=== PATIENT | male | born 1980 | race Caucasian/White ===

== ENCOUNTER 2023-09-30 09:50 | Emergency (ER) | payer OTHER ==
[~2023-09-30] VITALS: Ht 180.3 cm; Wt 81.4 kg
[2023-09-30 10:38] VITALS: BP 124/73; PULSE 64; RESP 18; TEMP 98.8
== END 2023-09-30 12:46 | disposition home or self-care (01) ==
LOC: EMS 09:50
DX: T18.9XXA Foreign body of alimentary tract, part unspecified, initial encounter (principal); W44.8XXA Other foreign body entering into or through a natural orifice, initial encounter; Y93.89 Activity, other specified; Y92.89 Other specified places as the place of occurrence of the external cause; Y99.8 Other external cause status
CPT/HCPCS: 74176; 99284; Z7502